=== PATIENT | female | born 1985 | race Caucasian/White ===

== ENCOUNTER 2019-10-01 12:42 | Outpatient (RCR) | payer MEDICAID, SELFPAY | END 2019-10-02 00:01 | LOC: SPT 12:42 | PROVIDERS: Family Provider Registered Nurse; Visit Provider Anesthesiology Pain Medicine | DX: M48.062 Spinal stenosis, lumbar region with neurogenic claudication (principal); M51.16 Intervertebral disc disorders with radiculopathy, lumbar region; M51.15 Intervertebral disc disorders with radiculopathy, thoracolumbar region; G89.4 Chronic pain syndrome; M54.5 Low back pain; M46.1 Sacroiliitis, not elsewhere classified; M47.814 Spondylosis without myelopathy or radiculopathy, thoracic region | CPT/HCPCS: 97161 ==

== ENCOUNTER 2019-10-03 06:00 | Outpatient (RCR) | payer MEDICAID, SELFPAY | END 2019-11-02 23:59 | disposition home or self-care (01) | LOC: SPT 06:00 | PROVIDERS: Family Provider Registered Nurse; PCP Registered Nurse; Visit Provider Anesthesiology Pain Medicine | DX: M48.062 Spinal stenosis, lumbar region with neurogenic claudication (principal); M51.16 Intervertebral disc disorders with radiculopathy, lumbar region; M51.15 Intervertebral disc disorders with radiculopathy, thoracolumbar region; G89.4 Chronic pain syndrome; M46.1 Sacroiliitis, not elsewhere classified | CPT/HCPCS: 97110 ==

== ENCOUNTER → 2019-10-11 09:01 | Outpatient (BNVA) | payer MEDICAID, SELFPAY | PROVIDERS: Family Provider Registered Nurse; PCP Registered Nurse; Visit Provider Nurse Practitioner Psychiatric/Mental Health | DX: F41.1 Generalized anxiety disorder (principal); F33.1 Major depressive disorder, recurrent, moderate; F42.9 Obsessive-compulsive disorder, unspecified; F17.210 Nicotine dependence, cigarettes, uncomplicated | CPT/HCPCS: 99213 ==

== ENCOUNTER 2019-10-16 12:13 | Outpatient (CLI) | payer MEDICAID, SELFPAY ==
--- NOTE | 2019-10-16 | XR_ITS ---
WS: [id number] SHOULDER LEFT TECHNIQUE: 3 views of the left shoulder CLINICAL INFORMATION: PAIN JOINT SHOULDER LEFT COMPARISON: None. FINDINGS: Mild degenerative arthritis at the AC joint. Mild downsloping of the acromion. Mild rotator cuff arth ropathy. No acute fractures. XR/XR shoulder LT min 2V* [id number] IMPRESSION: Mild rotator cuff arthropathy. No acute fractures.
== END 2019-10-16 12:14 | disposition home or self-care (01) ==
LOC: RADOUTREAD 10-17 10:38
PROVIDERS: Family Provider Registered Nurse; PCP Registered Nurse; Visit Provider Nurse Practitioner Family
DX: M12.812 Other specific arthropathies, not elsewhere classified, left shoulder (principal); M25.512 Pain in left shoulder

== ENCOUNTER 2019-11-03 06:00 | Outpatient (RCR) | payer SELFPAY | END 2019-12-01 23:59 | disposition home or self-care (01) | LOC: SPT 06:00 | PROVIDERS: Family Provider Registered Nurse; PCP Registered Nurse; Visit Provider Anesthesiology Pain Medicine | DX: Z01.89 Encounter for other specified special examinations (principal) ==

== ENCOUNTER → 2020-02-11 07:42 | Outpatient (BNVA) | payer MEDICAID, SELFPAY | PROVIDERS: Family Provider Registered Nurse; PCP Registered Nurse; Visit Provider Nurse Practitioner Psychiatric/Mental Health | DX: F42.9 Obsessive-compulsive disorder, unspecified (principal); F41.1 Generalized anxiety disorder; F33.1 Major depressive disorder, recurrent, moderate; F17.210 Nicotine dependence, cigarettes, uncomplicated; F43.12 Post-traumatic stress disorder, chronic | CPT/HCPCS: 99213 ==

== ENCOUNTER → 2020-03-10 07:37 | Outpatient (BNVA) | payer MEDICAID, SELFPAY | PROVIDERS: Family Provider Registered Nurse; PCP Registered Nurse; Visit Provider Nurse Practitioner Psychiatric/Mental Health | DX: F42.9 Obsessive-compulsive disorder, unspecified (principal); F41.1 Generalized anxiety disorder; F33.1 Major depressive disorder, recurrent, moderate; F17.210 Nicotine dependence, cigarettes, uncomplicated; F43.12 Post-traumatic stress disorder, chronic | CPT/HCPCS: 99213 ==

== ENCOUNTER → 2020-05-29 07:59 | Outpatient (BNVA) | payer MEDICAID, SELFPAY | PROVIDERS: Family Provider Registered Nurse; PCP Registered Nurse; Visit Provider Nurse Practitioner Psychiatric/Mental Health | DX: F42.9 Obsessive-compulsive disorder, unspecified (principal); F41.1 Generalized anxiety disorder; F33.1 Major depressive disorder, recurrent, moderate; F43.12 Post-traumatic stress disorder, chronic; F17.210 Nicotine dependence, cigarettes, uncomplicated | CPT/HCPCS: 99213 ==

== ENCOUNTER 2020-05-31 19:51 | Emergency (ER) | payer MEDICAID, SELFPAY ==
[2020-05-31 19:59] VITALS: PULSE 70; RESP 16; TEMP 36.7; O2SAT 98; BMI 30.7
--- NOTE | 2020-05-31 20:06 | W.ED.HA ---
HPI - Headache General: Chief Complaint: Headache Stated Complaint: migraine/ throwing up Time Seen by Provider: 05/31/20 20:05 Source: patient Mode of arrival: ambulatory Limitations: no limitations History of Present Illness: HPI Narrative: 34-year-old female comes in today with presentation of a headache starting this morning with nausea and vomiting. Patient states this is usual for her migraine headaches. Patient was unable to hold her headache with her usual ibuprofen. Patient states that this is very normal for her usual migraine. MD elicited complaint: migraine Associated symptoms: Reports nausea and vomiting Review of Systems General: Reports: 10 or more systems reviewed and unremarkable except in HPI and below GI: Reports: nausea and vomiting Neuro: Reports: headache(s) PFSH ED PFSH: Medical History (Updated 05/31/20 @ 21:12 by LION iDaz) Chronic post-traumatic stress disorder Generalized anxiety disorder Major depressive disorder, recurrent episode, moderate with anxious distress Obsessive-compulsive disorder with good or fair insight Family History Father Suicide Other Cancer Diabetes Heart disease Hypertension Psychiatric illness Stroke Social History Smoking and tobacco status: current every day smoker cigarettes Packs smoked per day: 0.25 Quit status (tobacco): has tried quititng Number of times tried to quit tobacco: 5 Second hand smoke exposure: No Smoking risk assessment/counseling performed?: No Physical Exam Const: COMMON NORMALS: no acute distress and patient oriented x3 GENERAL APPEARANCE: cooperative ORIENTATION/CONSCIOUSNESS: Yes oriented to person HENMT: COMMON NORMALS: normocephalic and Normal external nose present HEAD & SCALP: normal to inspection and normocephalic NOSE: Normal external nose present MOUTH: Normal oral and palatal mucosa present Eye: GENERAL EYE: appearance normal, both eyes and all related structures Neck/C-Spine: COMMON NORMALS: full ROM and no meningeal signs Lymph: LYMPHATIC: no lymphadenopathy noted Chest: COMMONS NORMALS: normal inspection of the chest Resp: COMMON NORMALS: normal respiratory effort EFFORT & INSPECTION: Yes able to speak in complete sentences Cardio: COMMON NORMALS: regular rate and regular rhythm RATE: regular rate RHYTHM: regular rhythm GI: COMMON NORMALS: non-tender : COMMON NORMALS: Yes no CVA tenderness BLADDER/KIDNEY EXAM: Yes no CVA tenderness Back/Pelvis: COMMON NORMALS: no CVA tenderness and thoracic and lumbar spine normal to inspection Extremity: COMMON NORMALS: normal to inspection Neuro: COMMON NORMALS: patient oriented x3 and moves all extremities SENSORIUM/ORIENTATION: Yes oriented to person MENINGEAL SIGNS: Yes no meningeal signs SPEECH: speech normal GAIT: Yes Normal gait present MOTOR EXAM: 5/5 motor strength present throughout and Pronator motor function not present Psych: COMMON NORMALS: mental status grossly normal and cooperative Skin: COMMON NORMALS: no rashes or lesions noted GENERAL SKIN EXAM: no rashes or lesions noted Course Vital Signs: Vital signs: Vital Signs Temperature 98.1 F 05/31/20 19:59 Pulse Rate 88 05/31/20 20:15 Respiratory Rate 18 05/31/20 20:15 Blood Pressure 100/58 05/31/20 20:15 Pulse Oximetry 100 05/31/20 20:15 MDM - Headache MDM Narrative: Medical decision making narrative: Patient comes in today for complaints of migraine. Patient appears mildly unwell and in moderate to severe pain. Exam notes no focal neural deficits. Patient responds appropriately to questions. Lungs are clear to auscultation. Patient moves all extremities well. Differential diagnosis includes but not limited to migraine, gastroenteritis, anxiety. Patient reported that this is usual for her migraine. Patient was treated with Reglan and Benadryl with good results and cessation of migraine. Reviewed post visit care with patient who stated understanding. Discharge Plan Discharge Patient Disposition: Home Clinical Impression: Migraine Qualifiers: Migraine type: unspecified Status migrainosus presence: with status migrainosus Intractability: not intractable Qualified Code(s): G43.901 - Migraine, unspecified, not intractable, with status migrainosus Condition: Stable Prescriptions: New promethazine 25 mg tablet 25 mg PO Q6H PRN (Reason: migraine headache) Qty: 10 RF: 0 naproxen 500 mg tablet 500 mg PO BID PRN (Reason: migraine headache) Qty: 10 RF: 0 No Action acetaminophen [Tylenol] 325 mg tablet 650 mg PO Q6H PRNRF: 0 ondansetron HCl [Zofran] 4 mg tablet 4 mg PO Q6H PRNRF: 0 phentermine 37.5 mg tablet 37.5 mg PO ONCE RF: 0 oxycodone-acetaminophen 5-325 mg tablet 0.5 tab PO DAILY PRNRF: 0 clonazepam [Klonopin] 0.5 mg tablet 0.5 mg PO TID Qty: 90 RF: 3 fluvoxamine 50 mg tablet 50 mg PO .bedtime Qty: 30 RF: 3 Discharge Orders: Discharge Order (Routine); Ordered 05/31/20 Ordered By: Anthony Rachel Referrals: Anastasiia Meraz FNP [Primary Care Provider] - Discharge Diet: Usual diet Discharge Activity: Increase activity as tolerated Patient Instructions: Acute Headache (ED) Activity Restrictions/Additional Instructions: Home and rest. Drink plenty of water. Follow-up with primary care for other treatment modalities for migraine. Return to the emergency department as needed for new concerns. Coding Level of Care Code ED Oncology Physician Assistant for Trenton Reyes Exam Comprehensive
[2020-05-31] MEDS: metoclopramide 5 mg/mL SDV 2 mL 10 MG IVP (20:14)
[2020-05-31] MEDS: diphenhydrAMINE 50 mg/mL SDV 1mL IVP (20:14)
[2020-05-31 20:15] VITALS: BP 100/58; PULSE 88; RESP 18; O2SAT 100
[2020-05-31] MEDS: sodium chloride 0.9% 500 ML 999 ML IV (20:15)
[2020-05-31 21:15] VITALS: BP 113/75; PULSE 51; RESP 18; O2SAT 98
[2020-05-31 21:21] VITALS: BP 113/75; PULSE 51; RESP 18; O2SAT 98
== END 2020-05-31 21:22 | disposition home or self-care (01) ==
PROVIDERS: Emergency Provider Nurse Practitioner Family; PCP Registered Nurse
DX: G43.901 Migraine, unspecified, not intractable, with status migrainosus (principal); F17.210 Nicotine dependence, cigarettes, uncomplicated
CPT/HCPCS: 12345; 96360; 96374; 96375; 99283; J1200; J2765; J7040

== ENCOUNTER → 2020-08-21 07:57 | Outpatient (BNVA) | payer MEDICAID, SELFPAY | PROVIDERS: PCP Registered Nurse; Visit Provider Nurse Practitioner Psychiatric/Mental Health | DX: F42.9 Obsessive-compulsive disorder, unspecified (principal); F41.1 Generalized anxiety disorder; F33.1 Major depressive disorder, recurrent, moderate; F17.210 Nicotine dependence, cigarettes, uncomplicated; F43.12 Post-traumatic stress disorder, chronic | CPT/HCPCS: 99213 ==

== ENCOUNTER → 2020-08-25 08:05 | Outpatient (BNVA) | payer MEDICAID, SELFPAY | PROVIDERS: PCP Registered Nurse; Visit Provider Specialist | DX: G56.03 Carpal tunnel syndrome, bilateral upper limbs (principal); G56.21 Lesion of ulnar nerve, right upper limb; F17.210 Nicotine dependence, cigarettes, uncomplicated | CPT/HCPCS: 95886; 95909 ==

== ENCOUNTER 2020-11-30 11:05 | Emergency (ER) | payer MEDICAID, SELFPAY ==
[2020-11-30 11:09] VITALS: BP 134/84; PULSE 93; RESP 18; TEMP 36.6; O2SAT 99; BMI 29.4
--- NOTE | 2020-11-30 11:34 | XRR_ITS ---
PROCEDURE INFORMATION: Exam: XR Chest Exam date and time: 11/30/2020 12:29 PM Age: 34 years old Clinical indication: Other: Pleuritic chest pain; Patient HX: Pain under left breast; Additional info: Dyspnea, pleuritic chest pain TECHNIQUE: Imaging protocol: XR of the chest Views: 1 view. COMPARISON: CR Chest 1 [place] [id number] 01/06/2019 12:59 PM FINDINGS: Lungs: Unremarkable. No consolidation. Pleural spaces: Unremarkable. No pleural effusion. No pneumothorax. Heart/Mediastinum: Stable cardiomediastinal silhouette. Bones/joints: Unremarkable. XR/XR chest 1V portable [id number] IMPRESSION: No evidence of active cardiopulmonary disease.
--- NOTE | 2020-11-30 11:50 | ECG_ITS ---
[facility] Test Date: 2020-11-30 Pat Name: Beatrice Dolan Department: Room: Gender: Female Human Services Care Specialist: : 1985 Requested By: Abbi Natarajan Order Number: [id number] Mariella MD: Lalit Tamayo M.D. Measurements Intervals [place] Rate: 70 P: 41 WY: 148 QRS: 44 QRSD: 84 T: 35 QT: 365 QTc: 394 Interpretive Statements SINUS RHYTHM POSSIBLE RIGHT VENTRICULAR CONDUCTION DELAY [RSR (QR) IN V1/V2] Compared to ECG 01/06/2019 13:52:18 No significant changes Electronically Signed On 11-30-2020 17:00:16 [employer] by Lalit Tamayo M.D. [id number]
--- NOTE | 2020-11-30 13:20 | ED_ITS ---
HPI - SOB/Dyspnea General: Chief Complaint: Shortness of Breath/Dyspnea Stated Complaint: PAIN UNDER L BREAST Time Seen by Provider: 11/30/20 11:07 [facility]: Medical History Chronic post-traumatic stress disorder Generalized anxiety disorder Major depressive disorder, recurrent episode, moderate with anxious distress Obsessive-compulsive disorder with good or fair insight Family History Father Suicide Other Cancer Diabetes Heart disease Hypertension Psychiatric illness Stroke Social History Smoking and tobacco status: current every day smoker cigarettes Packs smoked per day: 0.25 Quit status (tobacco): has tried quititng Number of times tried to quit tobacco: 5 Second hand smoke exposure: No Smoking risk assessment/counseling performed?: No Female Reproductive History: Date of last menstrual period: 11/28/20 Course Vital Signs: Vital signs: Vital Signs Temperature 97.8 F 11/30/20 11:09 Pulse Rate 93 11/30/20 11:09 Respiratory Rate 18 11/30/20 11:09 Blood Pressure 134/84 11/30/20 11:09 Pulse Oximetry 99 11/30/20 11:09 MDM - SOB/Dyspnea Lab Data: Labs: Lab Results 11/30/20 11/30/20 Range/Units 12:58 12:58 D-Dimer 0.33 (0-0.59) ug/mIFE U Sodium 139 (136-145) mmol/L Potassium 3.7 (3.5-5.1) mmol/L Chloride 103 (98-107) mmol/L Carbon Dioxide 25 (22-29) mmol/L Anion Gap 14.7 (5-19) BUN 13 (6-20) mg/dL Creatinine 0.8 (0.5-0.9) mg/dL GFR Calculation 81.6 L (90-130) mL/min Glucose 81 (65-115) mg/dL Calculated Osmolal ity 287 (285-295) mOsm/k g Calcium 9.7 (8.5-10.5) mg/dL Total Bilirubin 0.5 (0.15-1.2) mg/dL AST 23 (0-32) U/L ALT 29 (0-33) U/L Alkaline Phosphata se 113 H (35-105) IU/L Total Protein 8.0 (6.6-8.7) g/dL Albumin 4.4 (3.5-5.2) g/dL Globulin 3.6 (1.3-4.6) g/dL Discharge Plan Discharge Condition: Stable Prescriptions: New benzonatate [Tessalon Perles] 100 mg capsule 100 mg PO TID PRN (Reason: cough, chest pain) Qty: 30 RF: 0 prednisone 20 mg tablet 60 mg PO DAILY 3 Days Qty: 15 RF: 0 No Action acetaminophen [Tylenol] 325 mg tablet 650 mg PO Q6H PRN (Reason: Pain) RF: 0 ondansetron HCl [Zofran] 4 mg tablet 4 mg PO Q6H PRN (Reason: N/V) RF: 0 phentermine 37.5 mg tablet 37.5 mg PO DAILY RF: 0 clonazepam [Klonopin] 0.5 mg tablet 0.5 mg PO TID Qty: 90 RF: 3 omeprazole 10 mg capsule,delayed release(DR/EC) 10 mg PO DAILY RF: 0 Mucinex 1 tab PO DAILY RF: 0 Zyrtec 1 tab PO DAILY RF: 0 Discharge Orders: Discharge ED (Routine); Ordered 11/30/20 Ordered By: Abbi Natarajan Referrals: Anastasiia Meraz FNP [Primary Care Provider] - Discharge Diet: Advance as tolerated Discharge Activity: Resume usual activity Patient Instructions: Pleurisy (ED) Activity Restrictions/Additional Instructions: Make sure to schedule follow-up appoint with your primary care doctor in the next 3 to 5 days for recheck. Take frequent deep breaths to keep your lungs open and prevent pneumonia. Return immediately to the ER if you develop fever, worsening shortness of breath, or any other concerning changes. Coding Level of Care Code ED Animal Ride Attendant for Trenton Reyes
[2020-11-30 13:32] LABS: D Dimer 0.33 ug/mIFEU (0-0.59)
[2020-11-30 13:56] LABS: Alanine Aminotransferase 29 U/L (0-33); Albumin Level 4.4 g/dL (3.5-5.2); Alkaline Phosphatase 113 IU/L (35-105); Anion Gap 14.7 (5-19); Aspartate Amino Transferase 23 U/L (0-32); Blood Urea Nitrogen 13 mg/dL (6-20); Calcium 9.7 mg/dL (8.5-10.5); Carbon Dioxide 25 mmol/L (22-29); Chloride 103 mmol/L (98-107); Globulin 3.6 g/dL (1.3-4.6); Glomerular Filtration Rate 81.6 mL/min (90-130); Glucose 81 mg/dL (65-115); Osmolality Calculated 287 mOsm/kg (285-295); Potassium 3.7 mmol/L (3.5-5.1); Sodium 139 mmol/L (136-145); Total Bilirubin 0.5 mg/dL (0.15-1.2)
[2020-11-30 14:16] VITALS: BP 127/98; PULSE 78; RESP 18; O2SAT 96
== END 2020-11-30 14:19 ==
PROVIDERS: Emergency Provider Family Medicine; PCP Registered Nurse
DX: N64.4 Mastodynia (principal); F17.210 Nicotine dependence, cigarettes, uncomplicated
CPT/HCPCS: 71045; 80053; 85378; 93005; 99283

== ENCOUNTER 2021-02-24 10:41 | Emergency (ER) | payer MEDICAID, SELFPAY ==
[2021-02-24 10:43] VITALS: BP 142/105; PULSE 83; RESP 16; TEMP 36.9; O2SAT 100; BMI 29.2
[2021-02-24 10:49] VITALS: BP 136/96; PULSE 81; RESP 18; O2SAT 99
--- NOTE | 2021-02-24 11:04 | W.ED.NECK ---
HPI - Neck Pain/Injury General: Chief Complaint: Neck Pain/Injury Stated Complaint: LEFT NECK,ARM AND BACK PAIN Time Seen by Provider: 02/24/21 10:59 History of Present Illness: HPI Narrative: 35-year-old female presents with left lateral neck pain. She reports that it started about 4 5 days ago. That she thinks that she slept wrong. She has no injury. Patient reports that then at brought into her left posterior shoulder back and arm. Patient denies any numbness or tingling. Symptoms are worse with movement. Associated symptoms: Denies nausea Review of Systems Const: Denies: fever(s) or chills Eyes: Denies: change in vision ENMT: Denies: throat pain Card: Denies: chest pain or palpitations Resp: Denies: dyspnea or productive cough GI: Denies: abdominal pain, nausea or vomiting : Denies: flank pain or difficulty voiding Musc: Reports: neck pain and back pain; Denies: extremity swelling or decrease in muscle mass Skin/Breast: Denies: rash or pruritus Neuro: Denies: numbness in extremities or weakness in extremities PFSH ED PFSH: Medical History Chronic post-traumatic stress disorder Generalized anxiety disorder Major depressive disorder, recurrent episode, moderate with anxious distress Obsessive-compulsive disorder with good or fair insight Family History Father Suicide Other Cancer Diabetes Heart disease Hypertension Psychiatric illness Stroke Social History Smoking and tobacco status: current every day smoker cigarettes Packs smoked per day: 0.25 Quit status (tobacco): has tried quititng Number of times tried to quit tobacco: 5 Second hand smoke exposure: No Smoking risk assessment/counseling performed?: No Female Reproductive History: Date of last menstrual period: 11/28/20 Physical Exam Const: COMMON NORMALS: patient oriented x3 HENMT: COMMON NORMALS: normocephalic and atraumatic HEAD & SCALP: normal to inspection, normocephalic and atraumatic Neck/C-Spine: COMMON NORMALS: full ROM, supple and no meningeal signs CERVICAL SPINE: Yes Paracervical muscle tenderness and Yes Paracervical spasm Chest: COMMONS NORMALS: normal inspection of the chest Resp: COMMON NORMALS: normal respiratory effort, No use of accessory muscles and clear to auscultation bilaterally EFFORT & INSPECTION: Yes able to speak in complete sentences AUSCULTATION: clear to auscultation bilaterally Cardio: COMMON NORMALS: regular rate and regular rhythm RATE: regular rate RHYTHM: regular rhythm GI: COMMON NORMALS: Soft to palpation and non-tender PALPATION: Yes Soft to palpation Extremity: COMMON NORMALS: normal to inspection and full ROM Neuro: COMMON NORMALS: patient oriented x3, CN's II-XII intact bilaterally, moves all extremities, no focal motor deficits and no sensory deficits noted MENINGEAL SIGNS: Yes no meningeal signs Psych: COMMON NORMALS: mental status grossly normal and Normal thought process present THOUGHT PROCESS: Normal thought process present Skin: COMMON NORMALS: no rashes or lesions noted GENERAL SKIN EXAM: no rashes or lesions noted Course Vital Signs: Vital signs: Vital Signs Temperature 98.9 F 02/24/21 11:38 Pulse Rate 73 02/24/21 11:38 Respiratory Rate 18 02/24/21 11:38 Blood Pressure 136/96 02/24/21 11:38 Pulse Oximetry 99 02/24/21 11:38 MDM - Neck Pain/Injury MDM Narrative: Medical decision making narrative: Patient with Cervical muscle spasm. No injury so at this time no indication for x-rays or imaging. Patient will be prescribed muscle relaxants. Discussed with her that if no improvement in 4 to 5 days she should follow-up with her primary care provider for possible MRI or other imaging along with physical therapy referral at that point. Patient stable and discharged Discharge Plan Discharge Patient Disposition: Home Clinical Impression: Cervical radiculopathy Strain of neck muscle Qualifiers: Encounter type: initial encounter Qualified Code(s): S16.1XXA - Strain of muscle, fascia and tendon at neck level, initial encounter Condition: Stable Prescriptions: New cyclobenzaprine 10 mg tablet 10 mg PO Q12H Qty: 14 RF: 0 No Action acetaminophen [Tylenol] 325 mg tablet 650 mg PO Q6H PRN (Reason: Pain) RF: 0 ondansetron HCl [Zofran] 4 mg tablet 4 mg PO Q6H PRN (Reason: N/V) RF: 0 phentermine 37.5 mg tablet 37.5 mg PO DAILY RF: 0 clonazepam [Klonopin] 0.5 mg tablet 0.5 mg PO TID Qty: 90 RF: 3 omeprazole 10 mg capsule,delayed release(DR/EC) 10 mg PO DAILY RF: 0 Mucinex 1 tab PO DAILY RF: 0 Zyrtec 1 tab PO DAILY RF: 0 Tessalon Perles 100 mg capsule 100 mg PO TID PRN (Reason: cough, chest pain) Qty: 30 RF: 0 Discharge Orders: Discharge ED (Routine); Ordered 02/24/21 Ordered By: Ross Ortiz Referrals: Anastasiia Meraz FNP [Primary Care Provider] - Discharge Diet: Advance as tolerated Discharge Activity: Increase activity as tolerated Patient Instructions: Muscle Spasm (ED), Neck Exercises (GEN), Opioid Safety Activity Restrictions/Additional Instructions: 4% topical lidocaine with menthol to affected area Warm moist heat to affected area Gentle stretching Coding Level of Care Code ED Floors Buffer for Chg Fwd Exam Comprehensive
[2021-02-24 11:38] VITALS: BP 136/96; PULSE 73; RESP 18; TEMP 37.2; O2SAT 99
== END 2021-02-24 11:41 | disposition home or self-care (01) ==
PROVIDERS: Emergency Provider Student in an Organized Health Care Education/Training Program; PCP Registered Nurse
DX: M54.12 Radiculopathy, cervical region (principal); S16.1XXA Strain of muscle, fascia and tendon at neck level, initial encounter; F17.210 Nicotine dependence, cigarettes, uncomplicated; X58.XXXA Exposure to other specified factors, initial encounter
CPT/HCPCS: 99282

== ENCOUNTER → 2021-04-15 07:11 | Outpatient (BNVA) | payer MEDICAID, SELFPAY | PROVIDERS: PCP Registered Nurse; Visit Provider Nurse Practitioner Psychiatric/Mental Health | DX: F42.9 Obsessive-compulsive disorder, unspecified (principal); F41.1 Generalized anxiety disorder; F33.1 Major depressive disorder, recurrent, moderate; F17.210 Nicotine dependence, cigarettes, uncomplicated; F43.12 Post-traumatic stress disorder, chronic | CPT/HCPCS: 99214 ==

== ENCOUNTER → 2021-05-20 07:48 | Outpatient (BNVA) | payer MEDICAID, SELFPAY | PROVIDERS: PCP Registered Nurse; Visit Provider Nurse Practitioner Psychiatric/Mental Health | DX: F42.9 Obsessive-compulsive disorder, unspecified (principal); F41.1 Generalized anxiety disorder; F33.1 Major depressive disorder, recurrent, moderate; F17.210 Nicotine dependence, cigarettes, uncomplicated; F43.12 Post-traumatic stress disorder, chronic | CPT/HCPCS: 99214 ==

== ENCOUNTER 2021-06-07 15:03 | Emergency (ER) | payer MEDICAID, SELFPAY ==
[2021-06-07 15:38] VITALS: BP 118/84; PULSE 82; RESP 15; TEMP 36.7; O2SAT 95; BMI 29.7
--- NOTE | 2021-06-07 16:24 | XRR_ITS ---
PROCEDURE INFORMATION: Exam: XR Right Knee Exam date and time: 06/07/2021 4:24 PM Age: 35 years old Clinical indication: Pain; Knee; Right; Additional info: Twist injury to knee TECHNIQUE: Imaging protocol: XR Right knee. Views: 3 views. COMPARISON: No relevant prior studies available. FINDINGS: Bones/joints: No acute fracture. No dislocation. Normal bone mineralization. No joint effusion. Joint spaces are maintained. Soft tissues: No soft tissue swelling. No radiopaque foreign body. XR/XR knee RT 3V* [id number] IMPRESSION: No acute fracture. Followup imaging recommended in 7-14 days if clinical concern for fracture persists.
--- NOTE | 2021-06-07 16:36 | ED_ITS ---
HPI - Extremity Problem General: Chief complaint: Extremity Problem,Nontraumatic Stated complaint: R. KNEE PAIN Time Seen by Provider: 06/07/21 16:25 History of Present Illness: HPI Narrative: Pt is a 35 y/o female who comes to the ED with Right knee pain. Injury occured just prior to arrival. she was standing up from a sitting position on the floor and twisted right knee. She now has some pain to her right knee with weightbearing. Associated symptoms: Deny chest pain, fever(s) or rash Review of Systems Const: Denies: fever(s), chills or fatigue Eyes: Denies: change in vision or eye discomfort ENMT: Denies: throat pain, odynophagia, nasal discharge or nasal congestion Card: Denies: chest pain, palpitations, edema, swelling of feet/ankles, dyspnea on exertion or orthopnea Resp: Denies: dyspnea, productive cough or non-productive cough GI: Denies: abdominal pain, nausea, vomiting, diarrhea, constipation or hematochezia : Denies: flank pain, dysuria or hematuria Musc: Reports: extremity pain (right knee), joint pain (right knee) and limited range of motion (right knee); Denies: neck pain, back pain or extremity swelling Skin/Breast: Denies: rash or new lesions Neuro: Denies: headache(s), numbness in extremities or weakness in extremities PFSH ED PFSH: Medical History Chronic post-traumatic stress disorder Generalized anxiety disorder Major depressive disorder, recurrent episode, moderate with anxious distress Obsessive-compulsive disorder with good or fair insight Family History Father Suicide Other Cancer Diabetes Heart disease Hypertension Psychiatric illness Stroke Social History Smoking and tobacco status: current every day smoker cigarettes Packs smoked per day: 0.25 Quit status (tobacco): has tried quititng Number of times tried to quit tobacco: 5 Second hand smoke exposure: No Smoking risk assessment/counseling performed?: No Female Reproductive History: Date of last menstrual period: 06/06/21 Physical Exam Const: COMMON NORMALS: no acute distress, patient oriented x3 and alert GENERAL APPEARANCE: cooperative and comfortable HENMT: COMMON NORMALS: normocephalic HEAD & SCALP: normocephalic MOUTH: Normal oral and palatal mucosa present THROAT: posterior oropharynx normal and uvula midline Eye: COMMON NORMALS: Equal, round and reactive pupils present PUPIL: Yes Equal, round and reactive pupils present Neck/C-Spine: COMMON NORMALS: supple GENERAL: Yes normal visual inspection Resp: COMMON NORMALS: normal respiratory effort, No retractions, No use of accessory muscles and clear to auscultation bilaterally AUSCULTATION: clear to auscultation bilaterally Cardio: COMMON NORMALS: regular rate, regular rhythm, S1 normal heart sound present, S2 normal heart sound present, No gallops present (Cardio), No clicks present (Cardio), No murmurs present (Cardio) and Peripheral pulses 2+ throughout RATE: regular rate RHYTHM: regular rhythm HEART SOUNDS: S1 normal heart sound present and S2 normal heart sound present PERIPHERAL PULSES: Peripheral pulses 2+ throughout GI: COMMON NORMALS: Normal to inspection, nondistended, normoactive bowel sounds present, Soft to palpation, non-tender and no masses PALPATION: Yes Soft to palpation : COMMON NORMALS: Yes no CVA tenderness BLADDER/KIDNEY EXAM: Yes no CVA tenderness Back/Pelvis: COMMON NORMALS: no CVA tenderness Extremity: COMMON NORMALS: normal to inspection and no pedal edema NARRATIVE EXTREMITY EXAM: Patient's exam of right knee was unremarkable with no swelling or ecchymosis noted. She is neurovascular intact distally. Neuro: COMMON NORMALS: patient oriented x3 and moves all extremities SENSORIUM/ORIENTATION: Yes alert Skin: GENERAL SKIN EXAM: dry skin Course Vital Signs: Vital signs: Vital Signs Temperature 98.0 F 06/07/21 15:38 Pulse Rate 18 L 06/07/21 17:25 Respiratory Rate 75 H 06/07/21 17:25 Blood Pressure 136/89 06/07/21 17:25 Pulse Oximetry 98 06/07/21 17:25 MDM - Extremity (Nontraumatic) MDM Narrative: Medical decision making narrative: Patient is a 35-year-old female comes to the ED with right knee pain. Patient describes having twist injury. Exam is benign. X-ray of her right knee shows no acute fractures or findings. Patient was discharged home with crutches and a knee immobilizer for comfort. She was told to follow-up with her PCP in 7 to 10 days reevaluation. Rest, ice and elevate right leg. Return to ED precautions given. Patient understood agree with plan. Imaging Data^: Xray Ortho: Attestation: I personally reviewed and interpreted this imaging study as follows: Radiologist's impression: [facility] CenterUtfvtlalos[address] [facility].[place], [place] [address]RPfd ReportSigned Patient: Beatrice Dolan #: [id number]: 1985Acct#:[id number]/Sex: 35 / FADM Date: 06/07/21Loc: ERRoom/Bed:Attending Dr: Ordering Provider/Ordering MD: Alexandro Hager Date of Service: 06/07/21 Procedure(s): XR knee RT 3V* [id number] Accession Number(s): [id number] Report Number: [id number] PROCEDURE INFORMATION: Exam: XR Right Knee Exam date and time: 06/07/2021 4:24 PM Age: 35 years old Clinical indication: Pain; Knee; Right; Additional info: Twist injury to knee TECHNIQUE: Imaging protocol: XR Right knee. Views: 3 views. COMPARISON: No relevant prior studies available. FINDINGS: Bones/joints: No acute fracture. No dislocation. Normal bone mineralization. No joint effusion. Joint spaces are maintained. Soft tissues: No soft tissue swelling. No radiopaque foreign body. XR/XR knee RT 3V* [id number] IMPRESSION: No acute fracture. Followup imaging recommended in 7-14 days if clinical concern for fracture persists. Dictated By:Bridgett Burnett MDSigned By:Bridgett Burnett MDSigned Date/Time:06/07/211727DD/ 26 Discharge Plan Discharge Patient Disposition: Home Clinical Impression: Pain of right knee after injury Condition: Stable Prescriptions: No Action ondansetron HCl [Zofran] 4 mg tablet 4 mg PO Q6H PRN (Reason: N/V) RF: 0 clonazepam [Klonopin] 0.5 mg tablet 0.5 mg PO BID PRN (Reason: anxiety) Qty: 60 RF: 3 omeprazole 10 mg capsule,delayed release(DR/EC) 10 mg PO DAILY RF: 0 fluvoxamine 50 mg tablet 50 mg PO .bedtime Qty: 30 RF: 3 Mucinex 1 tab PO DAILY RF: 0 Zyrtec 1 tab PO BID RF: 0 cyclobenzaprine 10 mg tablet 10 mg PO Q12H Qty: 14 RF: 0 Discharge Orders: Discharge ED (Routine); Ordered 06/07/21 Ordered By: Alexandro Hager Discharge Diet: Regular Discharge Activity: Increase activity as tolerated Patient Instructions: Knee Pain (ED) Activity Restrictions/Additional Instructions: Follow-up with medical provider as directed for reevaluation. Take Tylenol for pain.Rest ice and elevate right leg. Return to the ER or your medical provider if condition worsens. Please read and understand discharge instructions. Thank you for choosing [facility] for your healthcare needs today. Please realize this is an emergency room and that we are providing you with a medical screening exam and this may not be complete and all inclusive of all the testing and or work up that you may need to determine your ailment or severity of your illness. It is very important that you follow up as instructed or that you return to the Emergency Department should you have concerns or if your condition changes or worsens in any way. Coding Level of Care Code ED Campus Receptionist for Trenton Reyes Exam Comprehensive
[2021-06-07 17:25] VITALS: BP 136/89; PULSE 18; RESP 75; O2SAT 98
== END 2021-06-07 17:26 | disposition home or self-care (01) ==
PROVIDERS: Emergency Provider Physician Assistant
DX: M25.561 Pain in right knee (principal); F17.210 Nicotine dependence, cigarettes, uncomplicated
CPT/HCPCS: 29530; 73562; 99283; E0114

== ENCOUNTER → 2021-07-01 07:32 | Outpatient (BNVA) | payer MEDICAID, SELFPAY | PROVIDERS: Visit Provider Nurse Practitioner Psychiatric/Mental Health | DX: F42.9 Obsessive-compulsive disorder, unspecified (principal); F41.1 Generalized anxiety disorder; F33.1 Major depressive disorder, recurrent, moderate; F17.210 Nicotine dependence, cigarettes, uncomplicated; F43.12 Post-traumatic stress disorder, chronic | CPT/HCPCS: 99214 ==

== ENCOUNTER 2021-07-30 12:46 | Outpatient (CLI) | payer MEDICAID, SELFPAY ==
--- NOTE | 2021-07-30 13:00 | MR_ITS ---
WS: [id number] MRI RIGHT KNEE HISTORY: RIGHT LATERAL KNEE PAIN COMPARISON: 06/07/2021 Anterior cruciate ligament: Intact. Posterior cruciate ligament: Intact. Medial collateral ligament: Intact. Posterior lateral corner structures: Intact. Medial menisci: Intrasubstance degeneration in the posterior meniscus. Increased signal does not exte nd to an inferior or superior reticular surface. Anterior horn is normal. Lateral meniscus: Intact. Normal signal, size and shape. Extensor mechanism: Distal quadriceps tendon and patellar tendons are intact. Fluid and soft tissue: No significant joint effusion. No Diego's cyst. Osseous and articular structures: Patellofemoral compartment: Normal. Medial compartment: No significant narrowing medial compartment. The cartilage is intact. Lateral compartment: Very small osteophytes along the joint line. No full-thickness cartilage defects . Subchondral cystic changes are noted in the posterior tibial plateau near the insertion site of the P CL. There is a very small amount of fluid at the proximal tibiofibular articulation. There may be a small osteophyte or loose body at this location causing the mild inflammation. MR/MR knee RT wo con* [id number] IMPRESSION: 1. No meniscal tears. 2. Subchondral cystic changes in the posterior tibial plateau at the site of t he PCL at insertion. 3. No joint effusion. 4. Small amount of inflammatory change at the proximal tibiofibular joint spac e. There may be an osteophyte or small loose body causing some mild inflammatio n. Not typical for a ganglion.
== END 2021-07-30 12:47 | disposition home or self-care (01) ==
LOC: RADSHAW 12:49
PROVIDERS: PCP Registered Nurse; Visit Provider Nurse Practitioner Family
DX: M25.561 Pain in right knee (principal)
CPT/HCPCS: 73721

== ENCOUNTER → 2021-09-07 11:03 | Outpatient (BNVA) | payer MEDICAID, SELFPAY | PROVIDERS: PCP Registered Nurse; Referring Provider Nurse Practitioner Family; Visit Provider Specialist | DX: M25.561 Pain in right knee (principal) | CPT/HCPCS: 73560; 73565 ==

== ENCOUNTER → 2021-09-16 07:49 | Outpatient (BNVA) | payer MEDICAID, SELFPAY | PROVIDERS: PCP Registered Nurse; Visit Provider Nurse Practitioner Psychiatric/Mental Health | DX: F42.9 Obsessive-compulsive disorder, unspecified (principal); F41.1 Generalized anxiety disorder; F33.1 Major depressive disorder, recurrent, moderate; F17.210 Nicotine dependence, cigarettes, uncomplicated; F43.12 Post-traumatic stress disorder, chronic | CPT/HCPCS: 99214 ==

== ENCOUNTER → 2021-12-15 08:28 | Outpatient (BNVA) | payer MEDICAID, SELFPAY | PROVIDERS: PCP Registered Nurse; Visit Provider Nurse Practitioner Psychiatric/Mental Health | DX: F42.9 Obsessive-compulsive disorder, unspecified (principal); F41.1 Generalized anxiety disorder; F33.1 Major depressive disorder, recurrent, moderate; F17.210 Nicotine dependence, cigarettes, uncomplicated; F43.12 Post-traumatic stress disorder, chronic | CPT/HCPCS: 99214 ==

== ENCOUNTER → 2022-01-11 08:53 | Outpatient (BNVA) | payer MEDICAID, SELFPAY | PROVIDERS: PCP Registered Nurse; Referring Provider Registered Nurse; Visit Provider Podiatrist Foot & Ankle Surgery | DX: M21.612 Bunion of left foot (principal); M25.872 Other specified joint disorders, left ankle and foot; M24.572 Contracture, left ankle; F17.210 Nicotine dependence, cigarettes, uncomplicated | CPT/HCPCS: 73630; 99203; 99205 ==

== ENCOUNTER 2022-02-25 13:36 | Outpatient (CLI) | payer MEDICAID, SELFPAY ==
--- NOTE | 2022-02-25 13:44 | IR_ITS ---
WS: [id number] RIGHT KNEE ARTHROGRAM Fluoroscopic guided right knee arthrogram. CLINICAL INFORMATION: M25.569 - Pain in unspecified knee COMPARISON: None. TECHNIQUE: The procedure including risks, benefits, and complications were discussed with the patient , who agreed to proceed. Timeout was performed. Using sterile technique, the patient was prepped and draped in the usual sterile fashion. After 1% lidocaine injection using fluoroscopic guidance, a 22-g auge spinal needle was advanced into the RIGHT patellofemoral compartment. Subsequently 40 cc of a mi xture containing 5 cc 1% lidocaine, 25 cc normal saline, 10 cc Omnipaque 240, and 0.2 cc gadolinium w as administered. No immediate complications. FLUOROSCOPY TIME: 0.7 # of spot films: 3 IR/[place] [id number] IMPRESSION: 1. Uncomplicated right knee fluoroscopic guided arthrogram 2. Septations visualized in the suprapatellar bursa with septations suspicious for PLICA. See following MRI for further discussion. 3. Patient proceeded to MRI for further evaluation.
--- NOTE | 2022-02-25 14:06 | MR_ITS ---
WS: [id number] MRI RIGHT KNEE ARTHROGRAM TECHNIQUE: Axial PD, coronal PD fat sat, coronal PD, sagittal PD, and sagittal PD fat-sat images obta ined. Intra-articular gadolinium and STIR was injected and multiplanar post arthrogram images were ob tained. CLINICAL INFORMATION: M25.569 - Pain in unspecified knee COMPARISON: MRI July 30, 2021. FINDINGS: Multiple bandlike septations visualized in the suprapatellar bursa best seen on the post arthrogram i maging. Prominent elongated medial parapatellar plica interposed between the patella and trochlea. Ad ditional loculated suprapatellar synovial thickening. Thickened and irregular infrapatellar plica (li gamentum mucosum) Mild chondromalacia patella. Small amount of subchondral fissuring along the lateral patella facet. M edial and lateral patellar retinacula appear intact. Distal quadriceps and patella tendons are intact . Normal ACL and PCL. Normal bone marrow signal in the femoral condyles and tibial plateau. No acute appearing meniscal tears. Medial and lateral collateral ligaments are intact. Normal popliteus. Suki l popliteal fossa. MR/MR knee RT wo/w con [id number] IMPRESSION: 1. Prominent elongated medial peripatellar plica interposed between the patell a and trochlea. 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 2. Mild chondromalacia patella with chondral fissuring along the lateral [place] facet. No subchondral edema. 3. Normal ACL and PCL. 4. Normal meniscus. No acute appearing meniscal tears. 5. Normal medial and lateral collateral ligaments. Outbridge grading: grade II: blister-like swelling/fraying of articular cartila ge extending to surface
[2022-02-25] MEDS: iohexol 240 mg/mL 50 mL Btl INTRA-ARTI (15:16)
== END 2022-02-25 13:37 | disposition home or self-care (01) ==
PROVIDERS: PCP Registered Nurse; Visit Provider Specialist
DX: M22.41 Chondromalacia patellae, right knee (principal); M25.561 Pain in right knee
CPT/HCPCS: 27369; 73580; 73723; 77002; A9577

== ENCOUNTER → 2022-03-10 07:47 | Outpatient (BNVA) | payer MEDICAID, SELFPAY | PROVIDERS: PCP Registered Nurse; Visit Provider Nurse Practitioner Psychiatric/Mental Health | DX: F42.9 Obsessive-compulsive disorder, unspecified (principal); F41.1 Generalized anxiety disorder; F33.1 Major depressive disorder, recurrent, moderate; F17.210 Nicotine dependence, cigarettes, uncomplicated; F43.12 Post-traumatic stress disorder, chronic | CPT/HCPCS: 99214 ==

== ENCOUNTER → 2022-05-12 08:25 | Outpatient (BNVA) | payer MEDICAID, SELFPAY | PROVIDERS: PCP Registered Nurse; Visit Provider Specialist | DX: M67.51 Plica syndrome, right knee (principal) | CPT/HCPCS: 99214 ==

== ENCOUNTER 2022-05-22 11:11 | Emergency (ER) | payer MEDICAID, SELFPAY ==
--- NOTE | 2022-05-22 11:22 | XRR_ITS ---
PROCEDURE INFORMATION: Exam: XR Right Elbow Exam date and time: 05/22/2022 11:47 AM Age: 36 years old Clinical indication: Injury or trauma; Other: Snapping twigs, one rebound; Swelling (edema); Elbow; Right; Injury date: 05/20/22 TECHNIQUE: Imaging protocol: Radiologic exam of the Right elbow. Views: 3 or more views. COMPARISON: No relevant prior studies available. FINDINGS: Bones/joints: Normal. Soft tissues: Normal. XR/XR elbow RT min 3V* [id number] IMPRESSION: No acute findings.
[2022-05-22 11:34] VITALS: BP 107/75; PULSE 71; RESP 14; TEMP 36.7; O2SAT 97; BMI 27.4
--- NOTE | 2022-05-22 11:42 | W.ED.UPPEXIN ---
HPI - Extremity Injury (Upper) General: Chief Complaint: Extremity Injury, Upper Stated Complaint: Right elbow injury Time Seen by Provider: 05/22/22 11:15 Source: patient Mode of arrival: ambulatory Limitations: no limitations History of Present Illness: Patient is a 36-year-old female presents to ED today for evaluation of a right elbow injury that she sustained 2 days ago. Patient states she was kicking a log trying to break it in half when a portion of the log/branch came up and struck her to her right elbow. No other injuries or complaints at this time. Denies lacerations/abrasions. No numbness, tingling, loss of sensation noted. complaint: injury to: right and elbow Onset (ago): day(s) Other Extremity Injury: Right: elbow Other injuries: none Place: home Severity: moderate Relieving factors: immobilization Exacerbating factors: movement of extremity Context: direct blow Associated symptoms: Reports no associated symptoms; Denies neck pain or weakness in extremities Review of Systems Musc: Reports: joint pain (R elbow) and joint swelling (R elbow); Denies: neck pain, back pain, extremity pain, extremity swelling, joint redness or joint warmth Neuro: Denies: numbness in extremities, weakness in extremities or sensory changes PFSH ED PFSH: Medical History Chronic post-traumatic stress disorder Generalized anxiety disorder Major depressive disorder, recurrent episode, moderate with anxious distress Obsessive-compulsive disorder with good or fair insight Psychiatric care Family History Father Suicide Other Cancer Diabetes Heart disease Hypertension Psychiatric illness Stroke Social History Smoking and tobacco status: current every day smoker cigarettes Packs smoked per day: 0.25 Quit status (tobacco): has tried quititng Number of times tried to quit tobacco: 5 Second hand smoke exposure: No Smoking risk assessment/counseling performed?: No Female Reproductive History: Date of last menstrual period: 05/09/22 Physical Exam Const: COMMON NORMALS: no acute distress, no limitations, alert and well nourished Extremity: COMMON NORMALS: full ROM, capillary refill normal and no clubbing, cyanosis or edema GENERAL: Yes normal exam except as noted RIGHT UPPER EXTREMITY: Yes elbow joint Right elbow: Yes palpation (mild swelling; pain to lateral condyle and radial head), Yes ROM (full but pain with supination/pronation and full extension) and Yes neurovascular exam (normal) Neuro: COMMON NORMALS: moves all extremities, no focal motor deficits and no sensory deficits noted SENSORIUM/ORIENTATION: Yes alert Skin: COMMON NORMALS: no rashes or lesions noted GENERAL SKIN EXAM: no rashes or lesions noted TRAUMA: no lacerations or abrasions Course Vital Signs: Vital signs: Vital Signs Temperature 98.0 F 05/22/22 11:48 Pulse Rate 71 05/22/22 11:48 Respiratory Rate 14 05/22/22 11:48 Blood Pressure 107/75 05/22/22 11:48 Pulse Oximetry 97 05/22/22 11:48 Oxygen Delivery Me thod 05/22/22 11:48 MDM - Extremity Injury (Upper) Medical Decision Making Preliminary read of XR is negative. Recommend conservative treatment and follow-up with PCP in a week if symptoms do not seem to be improving Discharge Plan Discharge Patient Disposition: Home Clinical Impression: Contusion of right elbow Qualifiers: Encounter type: initial encounter Qualified Code(s): S50.01XA - Contusion of right elbow, initial encounter Condition: Stable Prescriptions: No Action ondansetron HCl [Zofran] 4 mg tablet 4 mg PO Q6H PRN (Reason: N/V) omeprazole 10 mg capsule,delayed release(DR/EC) 10 mg PO DAILY Label Comments: unsure of strength fluvoxamine 50 mg tablet 50 mg PO .bedtime Qty: 90 2RF Rx Instructions: Take one tablet at bedtime clonazepam [Klonopin] 0.5 mg tablet 0.5 mg PO BID PRN (Reason: anxiety) Qty: 60 3RF Rx Instructions: Take one tablet twice per day as needed for anxiety Mucinex 1 tab PO DAILY Zyrtec 1 tab PO BID cyclobenzaprine 10 mg tablet 10 mg PO Q12H Qty: 14 0RF Discharge Orders: Discharge ED (Routine); Ordered 05/22/22 Ordered By: Lakia Dhillon Referrals: Anastasiia Meraz FNP [Primary Care Provider] - Coding Level of Care Code ED [employer] Sander for Chg Fwd Exam Expanded Problem Focused
[2022-05-22 11:48] VITALS: BP 107/75; PULSE 71; RESP 14; TEMP 36.7; O2SAT 97
== END 2022-05-22 12:08 | disposition home or self-care (01) ==
PROVIDERS: Emergency Provider Physician Assistant; PCP Registered Nurse
DX: S50.01XA Contusion of right elbow, initial encounter (principal); F17.210 Nicotine dependence, cigarettes, uncomplicated; W20.8XXA Other cause of strike by thrown, projected or falling object, initial encounter
CPT/HCPCS: 73080; 99283

== ENCOUNTER → 2022-10-12 08:36 | Outpatient (BNVA) | payer MEDICAID, SELFPAY | PROVIDERS: PCP Registered Nurse; Visit Provider Otolaryngology | DX: H66.92 Otitis media, unspecified, left ear (principal); H72.92 Unspecified perforation of tympanic membrane, left ear | CPT/HCPCS: 99213 ==

== ENCOUNTER → 2022-10-26 08:25 | Outpatient (BNVA) | payer MEDICAID, SELFPAY | PROVIDERS: PCP Registered Nurse; Visit Provider Otolaryngology | DX: H66.92 Otitis media, unspecified, left ear (principal); H90.12 Conductive hearing loss, unilateral, left ear, with unrestricted hearing on the contralateral side; H72.92 Unspecified perforation of tympanic membrane, left ear | CPT/HCPCS: 99212; 99213 ==

== ENCOUNTER → 2023-01-25 14:28 | Outpatient (BNVA) | payer MEDICAID, SELFPAY | PROVIDERS: PCP Registered Nurse; Visit Provider Podiatrist Foot & Ankle Surgery | DX: M79.672 Pain in left foot (principal) | CPT/HCPCS: 73630 ==

== ENCOUNTER → 2023-01-26 07:43 | Outpatient (BNVA) | payer MEDICAID, SELFPAY | PROVIDERS: PCP Registered Nurse; Visit Provider Podiatrist Foot & Ankle Surgery | DX: M21.612 Bunion of left foot (principal); M25.872 Other specified joint disorders, left ankle and foot; M24.572 Contracture, left ankle; M72.2 Plantar fascial fibromatosis | CPT/HCPCS: 99213 ==

== ENCOUNTER → 2023-03-09 07:59 | Outpatient (BNVA) | payer MEDICAID, SELFPAY | PROVIDERS: PCP Registered Nurse; Visit Provider Podiatrist Foot & Ankle Surgery | DX: M72.2 Plantar fascial fibromatosis (principal); M21.612 Bunion of left foot; M25.872 Other specified joint disorders, left ankle and foot; M24.572 Contracture, left ankle | CPT/HCPCS: 99213 ==

== ENCOUNTER 2023-03-09 11:02 | Outpatient (CLI) | payer MEDICAID, SELFPAY | END 2023-03-09 11:03 | disposition home or self-care (01) | LOC: SPT 11:02 | PROVIDERS: PCP Registered Nurse; Visit Provider Podiatrist Foot & Ankle Surgery | DX: Z46.89 Encounter for fitting and adjustment of other specified devices (principal); M72.2 Plantar fascial fibromatosis | CPT/HCPCS: 97760; L4397 ==

== ENCOUNTER 2023-03-09 19:37 | Emergency (ER) | payer MEDICAID, SELFPAY ==
--- NOTE | 2023-03-09 19:41 | ED_ITS ---
HPI - Extremity Injury (Upper) General: Chief Complaint: Extremity Injury, Upper Stated Complaint: Rt Thumb Injury Time Seen by Provider: 03/09/23 19:40 History of Present Illness: 37-year-old female comes in today for injury to the right hand. Patient has a history of fracture to the first metacarpal. Patient reports twisting her ankle but that has recovered without significant pain. Patient is concerned due to the persistent pain in the right hand and some swelling. Patient denies any other concerns. Patient appears nontoxic. Patient appears in mild pain. Review of Systems General: Reports: 10 or more systems reviewed and unremarkable except in HPI and below Musc: Reports: extremity pain and extremity swelling PFSH ED PFSH: Medical History Chronic post-traumatic stress disorder Generalized anxiety disorder Major depressive disorder, recurrent episode, moderate with anxious distress Obsessive-compulsive disorder with good or fair insight Psychiatric care Family History Father Suicide Other Cancer Diabetes Heart disease Hypertension Psychiatric illness Stroke Social History Smoking and tobacco status: current every day smoker cigarettes Packs smoked per day: 0.25 Quit status (tobacco): has tried quititng Number of times tried to quit tobacco: 5 Second hand smoke exposure: No Smoking risk assessment/counseling performed?: No Physical Exam Const: COMMON NORMALS: alert HENMT: COMMON NORMALS: normocephalic HEAD & SCALP: normocephalic Neck/C-Spine: COMMON NORMALS: full ROM Resp: COMMON NORMALS: normal respiratory effort and clear to auscultation bilaterally AUSCULTATION: clear to auscultation bilaterally Cardio: COMMON NORMALS: regular rate and regular rhythm RATE: regular rate RHYTHM: regular rhythm Extremity: COMMON NORMALS: full ROM RIGHT UPPER EXTREMITY: Yes hand & digits (Mild swelling of the area of the thumb, decreased range of motion due to sw) Right hand and digits: Yes inspection, Yes palpation, Yes ROM exam and Yes neurovascular exam Neuro: SENSORIUM/ORIENTATION: Yes alert Skin: COMMON NORMALS: turgor normal GENERAL SKIN EXAM: turgor normal Course Vital Signs: Vital signs: Vital Signs Temperature 97.9 F 03/09/23 19:50 Pulse Rate 88 03/09/23 19:50 Respiratory Rate 16 03/09/23 19:50 Blood Pressure 132/87 03/09/23 19:50 Pulse Oximetry 98 03/09/23 19:50 Oxygen Delivery Me thod Room Air 03/09/23 19:50 MDM - Extremity Injury (Upper) Medical Decision Making 37-year-old female comes in today for complaints of injury to the right thumb. On exam there is some decreased range of motion and swelling. Distal pulses and sensation is intact. Differential diagnosis includes fracture, sprain, contusion. X-ray noted no fracture but some mild degenerative joint disease. Reviewed exam with patient with recommendations for treatment and follow-up. Patient reported understanding. Lab Data Radiology Impressions Hand X-Ray 03/09/23 19:48 IMPRESSION: No acute findings. Discharge Plan Discharge Patient Disposition: Home Clinical Impression: Sprain of right thumb Qualifiers: Encounter type: initial encounter Sprain of finger site: metacarpophalangeal joint Qualified Code(s): S63.641A - Sprain of metacarpophalangeal joint of right thumb, initial encounter Condition: Stable Prescriptions: No Action ondansetron HCl [Zofran] 4 mg tablet 4 mg PO Q6H PRN (Reason: N/V) omeprazole 10 mg capsule,delayed release(DR/EC) 10 mg PO DAILY Patient Comments: unsure of strength [id number]-CH 3.5-10,000-1 mg/mL-unit/mL-% drops,suspension 4 drp otic (ear) TID 15 Days Qty: 10 1RF fluvoxamine 50 mg tablet 50 mg PO .bedtime Qty: 90 2RF Rx Instructions: Take one tablet at bedtime (DME) night splint See Rx Instructions .Route .MEDSUPPLY Qty: 1 0RF Rx Instructions: As directed clonazepam [Klonopin] 0.5 mg tablet 0.5 mg PO BID PRN (Reason: anxiety) Qty: 60 3RF Rx Instructions: Take one tablet twice per day as needed for anxiety Mucinex 1 tab PO DAILY Zyrtec 1 tab PO BID cyclobenzaprine 10 mg tablet 10 mg PO Q12H Qty: 14 0RF Discharge Orders: Discharge ED (Routine); Ordered 03/09/23 Ordered By: Anthony Rachel Referrals: Anastasiia Meraz FNP [Primary Care Provider] - Discharge Diet: Usual diet Discharge Activity: Increase activity as tolerated Patient Instructions: Hand Sprain (ED) Activity Restrictions/Additional Instructions: Elastic bandage for comfort and support. Use acetaminophen for pain. Activity as tolerated. Follow-up with primary care as needed. Coding Level of Care Code ED [employer] for Trenton Reyes
--- NOTE | 2023-03-09 19:48 | XRR_ITS ---
PROCEDURE INFORMATION: Exam: XR Right Hand Exam date and time: 03/09/2023 7:55 PM Age: 37 years old Clinical indication: Pain; Hand; Right; Additional info: Injury TECHNIQUE: Imaging protocol: Radiologic exam of the right hand. Views: 3 or more views. COMPARISON: No relevant prior studies available. FINDINGS: Bones/joints: Osseous structures are intact. Negative for fracture. Joint spaces are preserved. Soft tissues: Normal. XR/XR hand RT min 3V* [id number] IMPRESSION: No acute findings.
[2023-03-09 19:50] VITALS: BP 132/87; PULSE 88; RESP 16; TEMP 36.6; O2SAT 98
== END 2023-03-09 20:50 | disposition home or self-care (01) ==
PROVIDERS: Emergency Provider Nurse Practitioner Family; PCP Registered Nurse
DX: S63.641A Sprain of metacarpophalangeal joint of right thumb, initial encounter (principal); F17.210 Nicotine dependence, cigarettes, uncomplicated; X58.XXXA Exposure to other specified factors, initial encounter
CPT/HCPCS: 73130; 99283

== ENCOUNTER → 2023-03-14 13:49 | Outpatient (BNVA) | payer MEDICAID, SELFPAY | PROVIDERS: PCP Registered Nurse; Visit Provider Specialist | DX: M25.362 Other instability, left knee (principal); M23.92 Unspecified internal derangement of left knee | CPT/HCPCS: 99213 ==

== ENCOUNTER → 2023-03-14 13:52 | Outpatient (BNVA) | payer MEDICAID, SELFPAY | PROVIDERS: PCP Registered Nurse; Visit Provider Specialist | DX: M25.362 Other instability, left knee (principal); M23.92 Unspecified internal derangement of left knee | CPT/HCPCS: 73560; 73565 ==

== ENCOUNTER 2023-04-08 14:21 | Outpatient (CLI) | payer MEDICAID, SELFPAY ==
--- NOTE | 2023-04-08 14:33 | MR_ITS ---
WS: [id number] MRI left knee arthrogram (pre and post injection). HISTORY: Knee pain for one year. COMPARISON: Knee MRI 10/11/2016. Precontrast evaluation: Normal ACL and PCL. No significant joint effusion. No fracture or marrow juan a. No meniscal tear. Medial collateral ligament and the lateral collateral ligament. No significant d egenerative joint space narrowing. No osteochondral lesions. Postcontrast evaluation: After contrast injection there are several incomplete hypointense bandlike s tructures throughout the knee joint. Thin bandlike structures in both the medial and lateral compartm ent. There is also a bandlike structure in the posterior lateral knee. Patient provided a history of prior surgery for removal of these bands. No meniscal tears are identified. No osteochondral lesions. MR/MR knee LT wo/w con [id number] Impression: 1. Numerous thin bandlike structures noted within the knee joint after contrast injection. Consistent with plica syndrome. 2. No meniscal tear.
--- NOTE | 2023-04-08 14:45 | IR_ITS ---
WS: [id number] LEFT KNEE ARTHROGRAM (FLUOROSCOPY) LEFT knee arthrogram was performed in fluoroscopy prior to MRI evaluation. HISTORY: knee giving out on her COMPARISON: 10/11/2016 and radiograph 03/14/2023 FLUOROSCOPY TIME: 0min [id number] # of spot films: 2 Procedure, risks and complications were explained to the patient. Complications include but not limit ed to bleeding, infection and contrast reaction. Current medications are reviewed. Skin is cleansed with ChloraPrep. Skin is anesthetized with 1% buffered lidocaine. 22-gauge needle is inserted into the medial LEFT knee joint. Approximately 30 cc of gadolinium mixture injected without complication. Patient will proceed to MRI evaluation immediately. No complications were encountered. Patient is instructed to watch for post procedure infection or ble eding. Patient is also instructed to contact the radiology department with any concerns. Good contrast distention of the knee joint. IR/[place] [id number] IMPRESSION: Uncomplicated LEFT knee joint injection prior to MRI arthrogram.
== END 2023-04-08 14:22 | disposition home or self-care (01) ==
LOC: RAD 14:23
PROVIDERS: PCP Registered Nurse; Visit Provider Specialist
DX: M25.362 Other instability, left knee (principal); R93.6 Abnormal findings on diagnostic imaging of limbs
CPT/HCPCS: 27369; 73723; 77002; 99213; A9577; Q9966

== ENCOUNTER → 2023-04-20 08:38 | Outpatient (BNVA) | payer MEDICAID, SELFPAY | PROVIDERS: PCP Registered Nurse; Visit Provider Podiatrist Foot & Ankle Surgery | DX: M21.612 Bunion of left foot (principal); M25.872 Other specified joint disorders, left ankle and foot; M24.572 Contracture, left ankle; M72.2 Plantar fascial fibromatosis | CPT/HCPCS: 99213 ==

== ENCOUNTER → 2023-04-29 08:23 | Outpatient (BNVA) | payer MEDICAID, SELFPAY | PROVIDERS: PCP Registered Nurse; Visit Provider Otolaryngology | DX: H66.92 Otitis media, unspecified, left ear (principal); H72.92 Unspecified perforation of tympanic membrane, left ear | CPT/HCPCS: 99213 ==

== ENCOUNTER → 2023-05-18 11:20 | Outpatient (BNVA) | payer MEDICAID, SELFPAY | PROVIDERS: PCP Registered Nurse; Visit Provider Otolaryngology | DX: H66.92 Otitis media, unspecified, left ear (principal); H72.92 Unspecified perforation of tympanic membrane, left ear; H90.12 Conductive hearing loss, unilateral, left ear, with unrestricted hearing on the contralateral side | CPT/HCPCS: 99212; 99213 ==

== ENCOUNTER → 2023-05-30 07:56 | Outpatient (BNVA) | payer MEDICAID, SELFPAY | PROVIDERS: PCP Registered Nurse; Visit Provider Specialist | DX: M67.52 Plica syndrome, left knee (principal) | CPT/HCPCS: 99213 ==

== ENCOUNTER 2023-06-12 10:00 | Emergency (ER) | payer MEDICAID, SELFPAY ==
[2023-06-12 10:08] VITALS: BP 140/94; PULSE 62; RESP 18; TEMP 36.8; O2SAT 100
[2023-06-12 10:17] VITALS: BP 140/94; PULSE 63; RESP 16; O2SAT 100
--- NOTE | 2023-06-12 10:35 | XRR_ITS ---
PROCEDURE INFORMATION: Exam: XR Chest Exam date and time: 06/12/2023 11:25 AM Age: 37 years old Clinical indication: Chest wall pain; Additional info: Right side chest pain TECHNIQUE: Imaging protocol: Radiologic exam of the chest. Views: 1 view. COMPARISON: CR XR chest 1V portable [id number] 11/30/2020 11:55 AM FINDINGS: Lungs: There is no consolidation. Pleural spaces: There is no pleural effusion or pneumothorax. Heart/Mediastinum: Cardiomediastinal contours are unremarkable. Bones/joints: Bones are unremarkable. XR/XR chest 1V portable [id number] IMPRESSION: No acute findings.
--- NOTE | 2023-06-12 10:53 | ED_ITS ---
HPI - Back Pain/Injury General: Chief Complaint: Back Pain/Injury Stated Complaint: upper back/shoulder pain Time Seen by Provider: 06/12/23 10:26 History of Present Illness: Beatrice is a 37-year-old female that presents to the emergency department with right scapular pain that radiates into the right chest. Described as sharp. Denies shortness of breath. Patient notes that the pain started last night around 8:00. She went to bed but woke up with the same symptoms. Patient denies any falls or injuries. Denies trauma. She denies any bad coughing fits. She has a baseline cough due to smoking. She denies new URI symptoms. Patient states she came in today because in looking at [employer] she was alerted to the possibility that this could be a blood clot. Patient has no VTE history and has no family VTE history. Treatment prior to arrival?none. Patient did take a melatonin and was able to sleep last night Patient has a history that includes psychiatric disorders Associated symptoms: Deny abdominal pain, chills, difficulty walking, dysuria, fatigue, fever(s), hematuria, nausea, urinary urgency or vomiting Review of Systems General: Reports: 10 or more systems reviewed and unremarkable except in HPI and below Const: Denies: fever(s), chills, change in appetite, change in weight, fatigue or malaise Eyes: Denies: change in vision, eye discomfort, eye discharge or eye redness ENMT: Denies: throat pain, enlarged tonsils, odynophagia, hoarseness, ear or mastoid pain, ear discharge, change in hearing, tinnitus, nasal discharge, nasal congestion, post nasal drip or sinus pain Card: Denies: chest pain, palpitations, irregular heart rhythm, edema, dyspnea on exertion, orthopnea or leg pain with exertion Resp: Reports: productive cough (Unchanged from baseline) and chest congestion (Unchanged from baseline); Denies: dyspnea, non-productive cough, wheezing, stridor or change in phlegm color GI: Denies: abdominal pain, nausea, vomiting, dysphagia, diarrhea, constipation, bloating, GI cramping or hematochezia : Denies: flank pain, difficulty voiding, dysuria, urinary frequency, urinary urgency, urinary hesitancy, oliguria or hematuria Musc: Denies: neck pain, back pain, extremity pain, joint pain, joint swelling, joint redness, joint warmth or muscle weakness Skin/Breast: Denies: rash, pruritus, erythema, photosensitivity or new lesions Neuro: Denies: headache(s), numbness in extremities, weakness in extremities, sensory changes, lack of coordination, difficulty walking, frequent falls, dizziness, confusion, Slurred speech present, difficulty communicating thoughts, seizure-like activity or involuntary movements Endo: Denies: polyuria, polydipsia or tired all the time Mike/Lymph: Denies: easy bruising or easy bleeding PFSH ED PFSH: Medical History Chronic post-traumatic stress disorder Generalized anxiety disorder Major depressive disorder, recurrent episode, moderate with anxious distress Obsessive-compulsive disorder with good or fair insight Family History Father Suicide Other Cancer Diabetes Heart disease Hypertension Psychiatric illness Stroke Social History Smoking and tobacco status: current every day smoker cigarettes Packs smoked per day: 0.25 Quit status (tobacco): has tried quititng Number of times tried to quit tobacco: 5 Second hand smoke exposure: No Smoking risk assessment/counseling performed?: No Physical Exam Const: COMMON NORMALS: no acute distress, patient oriented x3 and alert GENERAL APPEARANCE: cooperative ORIENTATION/CONSCIOUSNESS: Yes awake, Yes oriented to person, Yes oriented to place and Yes oriented to time HENMT: COMMON NORMALS: normocephalic and atraumatic HEAD & SCALP: normocephalic and atraumatic FACE & SINUS: normal facial exam MOUTH: Normal oral and palatal mucosa present THROAT: posterior oropharynx normal Eye: COMMON NORMALS: Equal, round and reactive pupils present, EOMs intact bilaterally, conjunctivae normal and no scleral icterus GENERAL EYE: appearance normal, both eyes and all related structures ALIGNMENT: Yes alignment normal PERIORBITAL: periorbital findings normal CONJUNCTIVA: Yes conjunctivae normal PUPIL: Yes Equal, round and reactive pupils present Neck/C-Spine: COMMON NORMALS: full ROM GENERAL: Yes normal visual inspection Lymph: LYMPHATIC: no lymphadenopathy noted Chest: COMMONS NORMALS: normal inspection of the chest Breast/axilla inspection: Yes no chest deformity, asymmetry, normal contours, no nodules, masses, tenderness Resp: COMMON NORMALS: normal respiratory effort, No retractions, No use of accessory muscles and clear to auscultation bilaterally EFFORT & INSPECTION: Yes able to speak in complete sentences and Yes symmetric chest movement AUSCULTATION: clear to auscultation bilaterally Cardio: COMMON NORMALS: regular rate, regular rhythm and Peripheral pulses 2+ throughout RATE: regular rate RHYTHM: regular rhythm PERIPHERAL PULSES: Peripheral pulses 2+ throughout GI: COMMON NORMALS: Normal to inspection, nondistended, normoactive bowel sounds present, Soft to palpation, non-tender and No hepatosplenomegaly present INSPECTION: Yes normal to inspection AUSCULTATION: Yes normoactive bowel sounds PALPATION: Yes Soft to palpation and Yes No hepatosplenomegaly present RECTAL EXAM: deferred Extremity: COMMON NORMALS: normal to inspection GENERAL: Yes normal exam except as noted Neuro: COMMON NORMALS: patient oriented x3 SENSORIUM/ORIENTATION: Yes alert, Yes oriented to person, Yes oriented to place and Yes oriented to time CRANIAL NERVES: Yes CN normal except as noted Psych: COMMON NORMALS: mental status grossly normal, Normal thought process present, cooperative, activity/motor behavior normal, denies homicidal ideation and denies suicidal ideation THOUGHT PROCESS: Normal thought process present Skin: COMMON NORMALS: no rashes or lesions noted, no wounds and turgor normal GENERAL SKIN EXAM: no rashes or lesions noted and turgor normal Course Vital Signs: Vital signs: Vital Signs Temperature 98.2 F 06/12/23 10:08 Pulse Rate 63 06/12/23 10:17 Respiratory Rate 18 06/12/23 11:07 Blood Pressure 140/94 06/12/23 11:07 Pulse Oximetry 99 06/12/23 11:07 Oxygen Delivery Me thod Room Air 06/12/23 11:07 MDM - Back Pain/Injury Medical Decision Making Was evaluated in the emergency department for complaints of right subscapularis back pain that radiates to the right anterior chest. It is specifically present with motion and deep inspiration. Patient has been reading online that it could be a VTE?PE. She was concerned and wanted evaluation. Differential diagnosis of course includes PE but also musculoskeletal pain, pleurisy, muscle strain. Patient did want a chest x-ray to rule out pneumonia or pneumo She got a D-dimer to rule out VTE?within normal limits She was treated with Decadron and Norflex and did have some improvement in her symptoms. Unfortunately she is unable to take anti-inflammatories. Patient is going to be discharged home with instructions to use RICE as well as Tylenol. You may return to the emergency department for new concerning or worsening symptoms. All questions answered Labs Radiology Impressions Chest X-Ray 06/12/23 10:35 IMPRESSION: No acute findings. Laboratory Results D-Dimer 0.32 ug/mLFEU (0-0.59) 06/12/23 10:56 Discharge Plan Discharge Patient Disposition: Home Clinical Impression: Acute chest wall pain Condition: Stable Prescriptions: New prednisone 20 mg tablet 10 mg PO DAILY Qty: 5 0RF tizanidine 4 mg tablet 4 mg PO Q8H PRN (Reason: muscle spasticity) Qty: 20 0RF No Action ondansetron HCl [Zofran] 4 mg tablet 4 mg PO Q6H PRN (Reason: N/V) omeprazole 10 mg capsule,delayed release(DR/EC) 10 mg PO DAILY Patient Comments: unsure of strength (DME) night splint See Rx Instructions .Route .MEDSUPPLY Qty: 1 0RF Rx Instructions: As directed clonazepam [Klonopin] 0.5 mg tablet 0.5 mg PO BID PRN (Reason: anxiety) Qty: 60 3RF Rx Instructions: Take one tablet twice per day as needed for anxiety Zyrtec 1 tab PO BID cyclobenzaprine 10 mg tablet 10 mg PO Q12H PRN (Reason: Spasms) phentermine 37.5 mg tablet 37.5 mg PO QAM albuterol sulfate 90 mcg/actuation Hfa Aerosol Inhaler 2 puff INHALATION QID PRN (Reason: SHORTNESS OF BREATH) Symbicort 80-4.5 mcg/actuation Hfa Aerosol Inhaler 2 puff INHALATION BID Discharge Orders: Discharge ED (Routine); Ordered 06/12/23 Ordered By: Marbella Bolanos Referrals: Anastasiia Meraz FNP [Primary Care Provider] - Discharge Diet: Advance as tolerated Discharge Activity: Resume usual activity Patient Instructions: Pain Management Activity Restrictions/Additional Instructions: Rest, ice, along with Tylenol will help with pain and inflammation. I provided you with a prescription of tizanidine. This is a muscle relaxer like your cyclobenzaprine but just a different brand. Do not take this while taking cyclobenzaprine. This will help with muscle spasms. You will become sleepy so no driving while taking this. 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
[2023-06-12] MEDS: orphenadrine 30 mg/mL Inj 2 mL 60 MG IVP (10:58)
[2023-06-12] MEDS: dexamethasone 10 mg/mL INJ IVP (10:59)
[2023-06-12 11:07] VITALS: BP 140/94; RESP 18; O2SAT 99
[2023-06-12 11:19] LABS: D Dimer 0.32 ug/mLFEU (0-0.59)
== END 2023-06-12 12:21 | disposition home or self-care (01) ==
PROVIDERS: Emergency Provider Nurse Practitioner; PCP Registered Nurse
DX: R07.89 Other chest pain (principal)
CPT/HCPCS: 71045; 85378; 96374; 96375; 99284; J1100; J2360

== ENCOUNTER 2023-07-05 07:49 | Emergency (ER) | payer MEDICAID, SELFPAY ==
[2023-07-05 07:55] VITALS: BP 123/90; PULSE 97; TEMP 36.6; O2SAT 100; BMI 26.1
[2023-07-05] MEDS: tetanus-dipt-pertussis 0.5 mL SDV IM (08:07)
[2023-07-05 08:12] VITALS: BP 123/90; PULSE 65; RESP 16; O2SAT 100
--- NOTE | 2023-07-05 08:17 | W.ED.SKABFB ---
HPI - Skin/Abscess/Foreign Bdy General: Chief complaint: Skin/Abscess/Foreign Body Stated complaint: fishing hook in right elbow Time Seen by Provider: 07/05/23 07:52 Source: patient Mode of arrival: ambulatory History of Present Illness: 37-year-old female was accidentally impaled in the left elbow by a fishhook while in her car. She has a chartrusse colored buzzbait impaled in the lateral aspect of the left elbow the hook is not exposed. She is unsure of her last tetanus thinks maybe it was 5 to 6 years ago. complaint: foreign body Onset (ago): minute(s) Tetanus up to date: unsure Location: RUE (Elbow) Quality: sharp Pain Consistency: constant Relieving factors: immobilization Exacerbating factors: movement Treatments prior to arrival: none PFSH ED PFSH: Medical History Chronic post-traumatic stress disorder Generalized anxiety disorder Major depressive disorder, recurrent episode, moderate with anxious distress Obsessive-compulsive disorder with good or fair insight Family History Father Suicide Other Cancer Diabetes Heart disease Hypertension Psychiatric illness Stroke Social History Smoking and tobacco status: current every day smoker cigarettes Packs smoked per day: 0.25 Quit status (tobacco): has tried quititng Number of times tried to quit tobacco: 5 Second hand smoke exposure: No Smoking risk assessment/counseling performed?: No Physical Exam Narrative: EXAM NARRATIVE: Large Buzbee impelled on left elbow see procedure description below Procedures Foreign Body Removal Time Out Performed: yes Site: right Description of foreign body: fish hook Technique: manual removal Confirmed by:: direct visualization Complications: none Post-procedure exam: awake, alert Course Vital Signs: Vital signs: Vital Signs Temperature 97.9 F 07/05/23 07:55 Pulse Rate 65 07/05/23 08:12 Respiratory Rate 16 07/05/23 08:12 Blood Pressure 123/90 07/05/23 08:12 Pulse Oximetry 100 07/05/23 08:12 Oxygen Delivery Me thod Room Air 07/05/23 07:55 MDM - Skin/Abscess/Foreign Bdy Medicial Decision Making 1 mL of lidocaine with epi applied in the area where the skin was tented from the fishhook. After adequate time was allowed for anesthesia the hook and es were pushed through the skin completely. The other portions of the artificial lower were removed with a metal clippers. The sharp end of the hook and es were grasped with a forceps the proximal end of the hook was very herrmann the metal was creased with the crimper's but was not able to completely remove it. The metal was bent back and forth several times and snaps from fatigue was able to pull the metal through the remainder of the way. No incisions were made there is 2 small puncture wounds. No active bleeding. Tetanus updated started on prophylactic antibiotics wound care instructions given follow-up as needed Medical Records I reviewed the patient's medical records. No radiology studies performed this visit Discharge Plan Discharge Patient Disposition: Home Clinical Impression: Christian garcia in elbow Condition: Stable Prescriptions: New cephalexin 500 mg capsule 500 mg PO Q8H 5 Days Qty: 15 0RF No Action ondansetron HCl [Zofran] 4 mg tablet 4 mg PO Q6H PRN (Reason: N/V) omeprazole 10 mg capsule,delayed release(DR/EC) 10 mg PO DAILY Patient Comments: unsure of strength (DME) night splint See Rx Instructions .Route .MEDSUPPLY Qty: 1 0RF Rx Instructions: As directed clonazepam [Klonopin] 0.5 mg tablet 0.5 mg PO BID PRN (Reason: anxiety) Qty: 60 3RF Rx Instructions: Take one tablet twice per day as needed for anxiety Zyrtec 1 tab PO BID cyclobenzaprine 10 mg tablet 10 mg PO Q12H PRN (Reason: Spasms) phentermine 37.5 mg tablet 37.5 mg PO QAM albuterol sulfate 90 mcg/actuation Hfa Aerosol Inhaler 2 puff INHALATION QID PRN (Reason: SHORTNESS OF BREATH) Symbicort 80-4.5 mcg/actuation Hfa Aerosol Inhaler 2 puff INHALATION BID tizanidine 4 mg tablet 4 mg PO Q8H PRN (Reason: muscle spasticity) Qty: 20 0RF prednisone 20 mg tablet 10 mg PO DAILY Qty: 5 0RF Discharge Orders: Discharge ED (Routine); Ordered 07/05/23 Ordered By: Maximo Reyes Referrals: Anastasiia Meraz FNP [Primary Care Provider] - Discharge Diet: Usual diet Discharge Activity: Increase activity as tolerated Patient Instructions: Opioid Safety, Pain Management Activity Restrictions/Additional Instructions: Ice Tylenol and ibuprofen as needed for pain. If there are any signs of infection reevaluated primary care doctor. You should take the oral antibiotics for 5 days. 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
== END 2023-07-05 08:18 | disposition home or self-care (01) ==
PROVIDERS: Emergency Provider Family Medicine; PCP Registered Nurse
DX: S51.042A Puncture wound with foreign body of left elbow, initial encounter (principal); W26.8XXA Contact with other sharp object(s), not elsewhere classified, initial encounter; F17.210 Nicotine dependence, cigarettes, uncomplicated; Z23 Encounter for immunization
CPT/HCPCS: 90471; 90715; 99283

== ENCOUNTER 2023-07-19 10:34 | Emergency (ER) | payer MEDICAID, SELFPAY ==
--- NOTE | 2023-07-19 10:48 | XRR_ITS ---
PROCEDURE INFORMATION: Exam: XR Left Foot Exam date and time: 07/19/2023 10:54 AM Age: 37 years old Clinical indication: Pain; Foot; Left TECHNIQUE: Imaging protocol: Radiologic exam of the left foot. Views: 3 or more views. COMPARISON: No relevant prior studies available. FINDINGS: Bones/joints: Plantar calcaneal enthesopathy is noted. Soft tissues: Normal. XR/XR foot LT min 3V* [id number] IMPRESSION: Calcaneal enthesopathy at the foot.
[2023-07-19 10:49] VITALS: BP 129/87; PULSE 93; RESP 18; TEMP 36.9; O2SAT 100
--- NOTE | 2023-07-19 10:49 | W.ED.EXTPRO ---
HPI - Extremity Problem General: Chief complaint: Extremity Problem,Nontraumatic Stated complaint: left foot pain Time Seen by Provider: 07/19/23 10:36 Source: patient Mode of arrival: ambulatory Limitations: no limitations History of Present Illness: Patient is a 37-year-old female presents to ED today with a complaint of chronic left foot pain. Patient states she sees Dr. Avilez for her left foot pain. She states she has been told she needs surgery but was told she could be bedbound for 3 months following surgery and she cannot afford to do so. She also states she is supposed to be wearing bracing at night but states it is too painful to do this. She states over the past week or so she has pain now to the lateral aspect of her left foot which is an area where she has not had pain previously. Looking at previous documentation her last appointment with Dr. Avilez was in April. 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 MD Complaint: extremity pain Onset (ago): month(s) Pain Consistency: constant Location: left and lower extremity Radiation: none Exacerbating factors: weight bearing and walking Associated symptoms: Reports no associated symptoms Review of Systems Musc: Reports: extremity pain (L foot); Denies: extremity swelling, joint pain, joint swelling, joint redness or joint warmth Neuro: Denies: numbness in extremities or sensory changes PENDING SALE TO [facility] ED PFSH: Medical History Chronic post-traumatic stress disorder Generalized anxiety disorder Major depressive disorder, recurrent episode, moderate with anxious distress Obsessive-compulsive disorder with good or fair insight Family History Father Suicide Other Cancer Diabetes Heart disease Hypertension Psychiatric illness Stroke Social History Smoking and tobacco/nicotine status: current every day tobacco/nicotine user cigarettes Packs smoked per day: 0.25 Quit status (tobacco/nicotine): has tried quititng Number of times tried to quit tobacco: 5 Second hand smoke exposure: No Physical Exam Const: COMMON NORMALS: no acute distress, patient oriented x3, no limitations, alert and well nourished Extremity: COMMON NORMALS: full ROM, capillary refill normal, no joint enlargement, no clubbing, cyanosis or edema, no calf tenderness and no pedal edema GENERAL: Yes normal exam except as noted LEFT LOWER EXTREMITY: Yes foot & digits (TTP dorsolateral L foot; no swelling/bony deformity noted) Left foot and digits: Yes neurovascular exam (normal) Neuro: COMMON NORMALS: patient oriented x3, moves all extremities, no focal motor deficits and no sensory deficits noted SENSORIUM/ORIENTATION: Yes alert Course Vital Signs: Vital signs: Vital Signs Temperature 98.4 F 07/19/23 10:49 Pulse Rate 93 07/19/23 11:07 Respiratory Rate 18 07/19/23 11:07 Blood Pressure 129/87 07/19/23 11:07 Pulse Oximetry 100 07/19/23 11:07 Oxygen Delivery Me thod Room Air 07/19/23 10:49 MDM - Extremity (Nontraumatic) Medical Decision Making XR negative. Offered crutches but she declined stating they hurt her axillas. 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 XR interpretation done by ED provider, pending radiology final review Discharge Plan Discharge Patient Disposition: Home Clinical Impression: Chronic pain in left foot Condition: Stable Prescriptions: No Action ondansetron HCl [Zofran] 4 mg tablet 4 mg PO Q6H PRN (Reason: N/V) omeprazole 10 mg capsule,delayed release(DR/EC) 10 mg PO DAILY Patient Comments: unsure of strength (DME) night splint See Rx Instructions .Route .MEDSUPPLY Qty: 1 0RF Rx Instructions: As directed clonazepam [Klonopin] 0.5 mg tablet 0.5 mg PO BID PRN (Reason: anxiety) Qty: 60 3RF Rx Instructions: Take one tablet twice per day as needed for anxiety Zyrtec 1 tab PO BID cyclobenzaprine 10 mg tablet 10 mg PO Q12H PRN (Reason: Spasms) phentermine 37.5 mg tablet 37.5 mg PO QAM albuterol sulfate 90 mcg/actuation Hfa Aerosol Inhaler 2 puff INHALATION QID PRN (Reason: SHORTNESS OF BREATH) Symbicort 80-4.5 mcg/actuation Hfa Aerosol Inhaler 2 puff INHALATION BID tizanidine 4 mg tablet 4 mg PO Q8H PRN (Reason: muscle spasticity) Qty: 20 0RF prednisone 20 mg tablet 10 mg PO DAILY Qty: 5 0RF Discharge Orders: Discharge ED (Routine); Ordered 07/19/23 Ordered By: Lakia Dhillon Referrals: Anastasiia Meraz FNP [Primary Care Provider] - Coding Level of Care 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
[2023-07-19 11:07] VITALS: BP 129/87; PULSE 93; RESP 18; O2SAT 100
== END 2023-07-19 11:10 | disposition home or self-care (01) ==
PROVIDERS: Emergency Provider Physician Assistant; PCP Registered Nurse
DX: G89.29 Other chronic pain (principal); M79.672 Pain in left foot; F17.210 Nicotine dependence, cigarettes, uncomplicated
CPT/HCPCS: 73630; 99283

== ENCOUNTER 2024-06-27 09:38 | Emergency (ER) | payer MEDICAID, SELFPAY ==
[2024-06-27 09:47] VITALS: BP 142/93; PULSE 83; RESP 18; TEMP 36.7; O2SAT 98
--- NOTE | 2024-06-27 09:54 | XRR_ITS ---
PROCEDURE INFORMATION: Exam: XR Right Elbow Exam date and time: 06/27/2024 9:59 AM Age: 38 years old Clinical indication: Elbow; Right; Patient HX: Redness and swelling; Additional info: Injury TECHNIQUE: Imaging protocol: Radiologic exam of the right elbow. Views: 3 or more views. COMPARISON: CR XR elbow RT min 3V* [id number] 05/22/2022 11:47 AM FINDINGS: Bones/joints: Normal. Soft tissues: Normal. XR/XR elbow RT min 3V* [id number] IMPRESSION: No acute findings.
== END 2024-06-27 11:32 | disposition left against medical advice (07) ==
PROVIDERS: Emergency Provider Family Medicine; PCP Registered Nurse
DX: Z53.21 Procedure and treatment not carried out due to patient leaving prior to being seen by health care provider (principal)
CPT/HCPCS: 73080

== ENCOUNTER → 2024-10-30 08:03 | Outpatient (BNVA) | payer MEDICAID, SELFPAY | PROVIDERS: PCP Registered Nurse; Visit Provider Physician Assistant | DX: M25.512 Pain in left shoulder (principal); M75.42 Impingement syndrome of left shoulder | CPT/HCPCS: 73030; 99203 ==

== ENCOUNTER 2025-01-18 13:59 | Emergency (ER) | payer MEDICAID, SELFPAY ==
[2025-01-18 14:32] VITALS: BP 127/79; PULSE 83; RESP 16; TEMP 36.8; O2SAT 100; BMI 26.3
--- NOTE | 2025-01-18 14:59 | XR_ITS ---
WS: [id number] Left knee, 3 views, 01/18/2025 Clinical Data: injury/swelling Comparison: AP both knees, left knee, 03/14/2023 Findings: No fractures or dislocations are seen. The joint spaces are normal. The patella is intact. The soft tissues are unremarkable. XR/XR knee LT 3V* [id number] Impression: Negative left knee.
--- NOTE | 2025-01-18 14:59 | W.ED.LOWEXIN ---
HPI - Extremity Injury (Lower) General: Chief Complaint: Extremity Injury, Lower Stated Complaint: left knee pain Time Seen by Provider: 01/18/25 14:22 Source: patient Mode of arrival: ambulatory Limitations: no limitations History of Present Illness: Patient is a 39-year-old female presents to ED today for evaluation of left knee injury. Patient states she has chronic pain in her left knee. She states she was wrestling with her son last week and he flipped her over his shoulder and she somehow injured the knee. She states knee pain has been worse than her chronic pain and has noticed swelling to the joint. She has been ambulatory without assistance over the past week although states it is significantly painful to do so. 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 complaint: knee injury Onset (ago): week(s) (one week ago) Injury: Left: knee Place: home Severity: severe Relieving factors: nothing Exacerbating factors: weight bearing Associated symptoms: Reports no associated symptoms Other symptoms: none Related Data Home Medications ?Medication ?Instructions ?Recorded ?Confirmed ondansetron HCl 4 mg tablet 4 mg PO Q6H PRN N/V 10/05/19 10/30/24 (Zofran) omeprazole 10 mg capsule,delayed 10 mg PO DAILY 08/25/20 10/30/24 release Zyrtec 1 tab PO BID 04/14/21 10/30/24 albuterol sulfate 90 mcg/actuation 2 puff inhalation QID PRN 06/12/23 10/30/24 aerosol inhaler SHORTNESS OF BREATH budesonide-formoterol HFA 80 2 puff inhalation BID 06/12/23 10/30/24 mcg-4.5 mcg/actuation aerosol inhaler (Symbicort) cyclobenzaprine 10 mg tablet 10 mg PO Q12H PRN Spasms 06/12/23 10/30/24 phentermine 37.5 mg tablet 37.5 mg PO QAM 06/12/23 10/30/24 Previous Rx's ?Medication ?Instructions ?Recorded clonazepam 0.5 mg tablet (Klonopin) 0.5 mg PO BID PRN anxiety #60 tabs 05/21/22 night splint #1 ea 03/09/23 Allergies Allergy/AdvReac Type Severity Reaction Status Date / Time NSAIDS (Non-Steroidal Allergy Severe shuts down Verified 10/30/24 08:14 Anti-Inflamma kidneys tramadol Allergy Unknown Unknown Verified 10/30/24 08:14 hydrocodone Allergy Unknown Verified 10/30/24 08:14 Review of Systems Musc: Reports: joint pain (L knee) and joint swelling (L knee); Denies: extremity pain, extremity swelling or joint redness Neuro: Denies: numbness in extremities or sensory changes PFSH ED PFSH: Medical History Chronic post-traumatic stress disorder Obsessive-compulsive disorder with good or fair insight Major depressive disorder, recurrent episode, moderate with anxious distress Generalized anxiety disorder Family History Father Suicide Other Cancer Diabetes Heart disease Hypertension Psychiatric illness Stroke Social History Smoking and tobacco/nicotine status: unknown if used tobacco/nicotine Quit status (tobacco/nicotine): has tried quititng Number of times tried to quit tobacco: 5 Second hand smoke exposure: No Physical Exam Const: COMMON NORMALS: no acute distress, no limitations, alert and well nourished Extremity: COMMON NORMALS: capillary refill normal, no clubbing, cyanosis or edema, no calf tenderness and no pedal edema GENERAL: Yes normal exam except as noted LEFT LOWER EXTREMITY: Yes knee joint (TTP mainly to lateral L knee; effusion) Left knee: Yes inspection (normal gross inspection apart from effusion present), Yes ROM (fairly normal; no pain out of proportion to exam) and Yes neurovascular exam (normal) Neuro: COMMON NORMALS: moves all extremities, no focal motor deficits, no sensory deficits noted and gait normal SENSORIUM/ORIENTATION: Yes alert Course Vital Signs: Vital signs: Vital Signs Temperature 98.3 F 01/18/25 14:32 Pulse Rate 83 01/18/25 14:32 Respiratory Rate 16 01/18/25 14:32 Blood Pressure 127/79 01/18/25 14:32 Pulse Oximetry 100 01/18/25 14:32 Oxygen Delivery Me thod Room Air 01/18/25 14:32 MDM - Extremity Injury (Lower) Medical Decision Making Patient here for acute on chronic left knee pain after an injury approximately week ago. She has been ambulating on the knee without assistance since the injury. XR of her left knee is unremarkable. Patient very agitated during her ED visit stating that nobody is doing anything for me to fix my knee pain . She is frustrated that she cannot get an MRI today. She is frustrated stating she has been here over 2 hours. Total length of stay at time discharge was 1.5 hours. She is frustrated that nobody offered her an ice pack or a heating pad for her knee. I apologized about her wait. No longer wanted an ice pack when I did offer. She states she has crutches at home. Will BEVERLY wrap her knee. At time of discharge she is calling [facility] orth[facility] clinic (even though I stated I would place a referral) to get an appointment. Lab Data Radiology Impressions Knee X-Ray 01/18/25 14:59 Impression: Negative left knee. All radiology interpretation(s) finalized by discharge Discharge Plan Discharge Patient Disposition: Home Clinical Impression: Left knee injury Condition: Stable Prescriptions: No Action ondansetron HCl [Zofran] 4 mg tablet 4 mg PO Q6H PRN (Reason: N/V) omeprazole 10 mg capsule,delayed release(DR/EC) 10 mg PO DAILY Patient Comments: unsure of strength (DME) night splint See Rx Instructions .Route .MEDSUPPLY Qty: 1 0RF Rx Instructions: As directed clonazepam [Klonopin] 0.5 mg tablet 0.5 mg PO BID PRN (Reason: anxiety) Qty: 60 3RF Rx Instructions: Take one tablet twice per day as needed for anxiety Zyrtec 1 tab PO BID cyclobenzaprine 10 mg tablet 10 mg PO Q12H PRN (Reason: Spasms) phentermine 37.5 mg tablet 37.5 mg PO QAM albuterol sulfate 90 mcg/actuation Hfa Aerosol Inhaler 2 puff INHALATION QID PRN (Reason: SHORTNESS OF BREATH) Symbicort 80-4.5 mcg/actuation Hfa Aerosol Inhaler 2 puff INHALATION BID Discharge Orders: Discharge ED (Routine); Ordered 01/18/25 Ordered By: Lakia Dhillon Referrals: Anastasiia Meraz FNP [Primary Care Provider] - Print Language: Israeli Coding Level of Care Code ED C Developer for Trenton Fwamy
--- NOTE | 2025-01-18 15:17 | PC.NURSE ---
Went to apply acewrap to patients knee and pt states, My knee hurts too much for that to be put on right now. Getting the xray done caused more pain . Acewrap given to patient and told her that she does not have to have it on but if she would like it on at a later time I will assist her in doing so.
== END 2025-01-18 15:33 | disposition home or self-care (01) ==
PROVIDERS: Emergency Provider Physician Assistant; PCP Registered Nurse
DX: S89.92XA Unspecified injury of left lower leg, initial encounter (principal); X58.XXXA Exposure to other specified factors, initial encounter
CPT/HCPCS: 73562; 99283

== ENCOUNTER → 2025-01-23 08:02 | Outpatient (BNVA) | payer MEDICAID, SELFPAY | PROVIDERS: PCP Registered Nurse; Visit Provider Specialist | DX: S89.92XA Unspecified injury of left lower leg, initial encounter (principal); M23.92 Unspecified internal derangement of left knee; X58.XXXA Exposure to other specified factors, initial encounter | CPT/HCPCS: 73560; 73565; 99214 ==

== ENCOUNTER 2025-02-04 09:28 | Outpatient (CLI) | payer MEDICAID, SELFPAY ==
--- NOTE | 2025-02-04 09:30 | MR_ITS ---
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 Fibers are normally positioned. Posterior cruciate ligament: Intact. Medial collateral ligament: Intact. Posterior lateral corner structures: Posterior lateral corner structures are intact. There is a small amount of increased T2 signal in the popliteus tendon and a small amount of adjacent fluid which is new since the prior study of 04/08/2023. Medial menisci: Intact. Normal signal, size and shape. Lateral meniscus: Intact. Normal signal, size and shape. Extensor mechanism: Distal quadriceps tendon and patellar tendons are intact. Fluid and soft tissue: Small suprapatellar joint effusion. Joint effusion is prominent than on 04/08/2023. There are a few small thin bands noted within the joint effusion which can be seen with plica syndrome. These are thin bands. No Diego's cyst. Osseous and articular structures: Patellofemoral compartment: Slight lateral subluxation of the patella. No marrow edema. No significant loss of cartilage. Medial compartment: Normal. No marrow edema. Preserved cartilage. Lateral compartment: No marrow edema. Preserved cartilage. MR/MR knee LT wo con* [id number] IMPRESSION: 1. Small suprapatellar joint effusion. Effusion has increased since 04/08/2023. 2. There are few small thin bands within the suprapatellar effusion which can be seen with Plica syndrome. 3. Slight lateral subluxation of the patella. 4. Mild increased T2 signal in the popliteus tendon from tendinopathy. New sin ce 04/08/2023. 5. No meniscal tear identified. 6. Mucoid degeneration in the ACL.
== END 2025-02-04 09:29 | disposition home or self-care (01) ==
LOC: RAD 09:28
PROVIDERS: PCP Registered Nurse; Visit Provider Specialist
DX: M67.52 Plica syndrome, left knee (principal); M25.462 Effusion, left knee; M67.864 Other specified disorders of tendon, left knee; M23.612 Other spontaneous disruption of anterior cruciate ligament of left knee
CPT/HCPCS: 73721

== ENCOUNTER → 2025-02-11 14:28 | Outpatient (BNVA) | payer MEDICAID, SELFPAY | PROVIDERS: PCP Registered Nurse; Visit Provider Specialist | DX: M25.562 Pain in left knee (principal) | CPT/HCPCS: 99214 ==